=== PATIENT | male | born 1950 | race Caucasian/White ===

== ENCOUNTER 2020-09-06 10:11 | Outpatient (CLI) | payer MEDICARE, OTHER, SELFPAY ==
--- NOTE | 2020-09-06 10:00 | XRR_ITS ---
PROCEDURE INFORMATION: Exam: XR Abdomen Exam date and time: 09/06/2020 10:30 AM Age: 70 years old Clinical indication: Condition or disease; Kidney or ureter condition; Calculus (stone) in kidney; Prior surgery; Surgery type: Hernia x 2; Additional info: Renal stones of both kidneys TECHNIQUE: Imaging protocol: XR of the abdomen. Views: Frontal supine view of the abdomen. 1 View. COMPARISON: CR XR KUB [id number] 05/22/2019 10:19 AM FINDINGS: Gastrointestinal tract: Nonspecific small bowel dilatation and prominent stool. Intraperitoneal space: Multiple subcentimeter pelvic calcifications, which can be better characterized with CT, if clinically indicated. Incomplete visualization of the lateral and superior most aspects of the abdomen. Organs: Multiple punctate nonobstructing bilateral renal calculi. Bones/joints: Degenerative change. XR/XR KUB [id number] IMPRESSION: 1. Multiple punctate nonobstructing bilateral renal calculi. 2. Multiple subcentimeter pelvic calcifications, which can be better characterized with CT, if clinically indicated.
== END 2020-09-06 10:12 | disposition home or self-care (01) ==
LOC: RAD 10:16
PROVIDERS: PCP Family Medicine; Visit Provider Urology
DX: N20.0 Calculus of kidney (principal)
CPT/HCPCS: 74018; 81003; 87077; 87086; 87184

== ENCOUNTER → 2020-09-07 12:20 | Outpatient (BNVA) | payer MEDICARE, OTHER, SELFPAY | PROVIDERS: PCP Family Medicine; Visit Provider Urology | DX: Z20.822 Contact with and (suspected) exposure to COVID-19 (principal); N20.0 Calculus of kidney | CPT/HCPCS: 87635 ==

== ENCOUNTER 2020-09-12 11:51 | Day surgery (SDC) | payer MEDICARE, OTHER, SELFPAY ==
[2020-09-09 08:45] VITALS: BMI 33.9
--- NOTE | 2020-09-12 11:53 | XRR_ITS ---
PROCEDURE INFORMATION: Exam: XR Abdomen Exam date and time: 09/12/2020 12:13 PM Age: 70 years old Clinical indication: Screening exam; Other: Preop eswl bladder stones; Prior surgery; Surgery type: Hernia, kidney TECHNIQUE: Imaging protocol: XR of the abdomen. Views: Frontal supine view of the abdomen. 1 View. COMPARISON: CR XR KUB [id number] 09/06/2020 10:38 AM FINDINGS: Tubes, catheters and devices: Prior mesh placement Gastrointestinal tract: Bowel gas pattern is nonspecific. No mass effect upon the bowel loops. Distal rectal gas. Scattered loops of air filled small bowel none of which are dilated. Organs: Numerous small calcifications in the pelvis likely within the bladder given the history. Bones/joints: No acute process within the osseous structures of the spine or pelvis. Other findings: No appreciable calcifications; Numerous calcifications overlie the right and left kidneys largest on the left of approximately 4 mm on the right of approximately 3 mm. XR/XR KUB [id number] IMPRESSION: 1. Bowel gas pattern is nonspecific. 2. Numerous small calcifications in the pelvis likely within the bladder given the history. 3. Numerous calcifications overlie the right and left kidneys largest on the left of approximately 4 mm on the right of approximately 3 mm.
[2020-09-12 12:26] VITALS: BP 147/85; PULSE 61; RESP 18; TEMP 36.8; O2SAT 97
[2020-09-12] MEDS: sodium chloride 0.9% 1,000 ML 30 ML IV (12:51)
[2020-09-12] MEDS: levofloxacin-dextrose 5 % 500 MG/100 ML PREMIX 100 MG IV (13:09)
--- NOTE | 2020-09-12 13:22 | ANES.PREANE2 ---
Pre-Anesthetic Assessment Pre-Anesthetic Assessment: Height/Weight: Height 1.83 m Weight 113.398 kg Temp Pulse Resp BP Pulse Ox 98.2 F 61 18 147/85 97 09/12/20 12:26 09/12/20 12:26 09/12/20 12:26 09/12/20 12:26 09/12/20 12:26 Preop Diagnosis: cystolithiasis Proposed Procedure: Operation Date: 09/12/20 13:20 Proposed Procedures p Cystoscopy [id number] N20.0(Not Applicable) - Morteza Landis MD s ESWL(Not Applicable) - Morteza Landis MD Was Beta Craig taken within 24 hours: Yes Last intake: Intake Last Liquid Date 09/19/20 Last Liquid Time 06:00 Last Solid Date 09/11/20 Last Solid Time 21:00 Social: Social History: No alcohol and No tobacco Exam: Pre-Anes Outpt Exam: alert, oriented x 3, clear to auscultation bilaterally and regular rate & rhythm Airway: Submandibular: WNL Cervical ROM: Other (Limited) MP: 2 Dentition: Caps History/ROS: No significant complaints Pulmonary: Pulmonary: Sleep apnea CV/HEM: CV/HEM: HTN : : None reported Hepatic: Hepatic: None reported GI: GI: None reported Metabolic: Metabolic: Hyperlipidemia Musc/skel: Musc/skel: None reported Neuropsych: Comments: Essential Tremor Anesthetic Plan: ASA status: 3 Anesthesia: General Meds/Allergies Current Medications: Current Medications Generic Name Dose Route Start Last Admin Trade Name Freq PRN Reason Stop Dose Admin Sodium Chloride 1,000 mls @ 30 ml s/hr 09/12/20 12:30 09/12/20 12:51 Sodium Chloride 0.9% IV 30 mls/hr .Q24H JACY Administration PFSH Anesthesia PFSH: Medical History (Updated 09/07/20 @ 12:58 by Morteza Landis MD) Benign prostatic hyperplasia with lower urinary tract symptoms Bilateral renal stones Elevated prostate specific antigen [PSA] Frequency of urination Retention of urine, unspecified Surgical History H/O lithotripsy S/P hernia repair S/P tonsillectomy Family History Mother Dementia Father Cancer prostate Social History Smoking and tobacco status: never smoked Alcohol intake: never Marital status: Current occupational status: retired Data Anesthesia Cardiac Studies: No Data to Display
--- NOTE | 2020-09-12 15:12 | W.PM.OPSUD ---
Surgery/Procedure H&P Update DATE OF PROCEDURE: September 12, 2020 DATE H&P PERFORMED: 09/07/20 H&P UPDATE INFORMATION: I have reviewed H&P completed within last 30 days, I have examined patient prior to procedure, No changes to prior documentation and H&P is in [facility] on date indicated PREOP DIAGNOSIS: cystolithiasis PLANNED PROCEDURE: Operation Date: 09/12/20 13:20 Proposed Procedures p Cystoscopy [id number] N20.0(Not Applicable) - Morteza Landis MD s ESWL(Not Applicable) - Morteza Landis MD
--- NOTE | 2020-09-12 15:14 | PM.OP ---
Operative Report Date of procedure: September 12, 2020 Pre-op Diagnosis: cystolithiasis Post-op diagnosis: same Procedure Done: 1. Extracorporeal shockwave lithotripsy to multiple bladder stones 2. Cystoscopy with evacuation of bladder stone fragments Pathology: Bladder stone fragments Surgeon: Boby Bitumastic Applier: Isi Anesthesia: General Estimated blood loss: Minimal Urine output: Not measured Complications: None Condition: stable Disposition: PACU Brief History: Mr. Newby is a very pleasant 70-year-old white male with a complex history of bilateral urolithiasis with multiple procedures over the years. Recently he started passing stones in the been in his kidneys for years with actually very little symptoms into the bladder. He has a very large prostate with bladder obstructive symptoms and is on double dose TAMSULOSIN. The stones were identified on KUB as either in the distal right ureter or in the bladder and a cystoscopy in clinic confirmed stones were actually in the bladder. They were too large to pull out intact in the clinic for that reason he is admitted today for treatment. We reviewed ESWL versus cystolitholapaxy versus laser lithotripsy and elected ESWL with evacuation via cystoscopy. Preoperatively we also discussed the potential postop use of a catheter due to his huge prostate and bladder outlet obstructive symptoms with likelihood of postop retention. We left that decision to be made intraoperatively given the findings. Procedure: After routine preoperative evaluation examination and obtaining of informed consent he was taken to the operating suite on 09/12/2020 where general anesthesia was administered without difficulty after appropriate timeout was performed, SCDs confirmed to be functioning, preoperative antibiotics administered, beta-charley protocol confirmed. Positioned on the Dornier unit such that the stones in the bladder were located at the focal point with the shock head positioned anteriorly. The stones were easily identified. Shockwave therapy was initiated intensity of 1 and advanced an intensity of 4. Rate was begun at 70 and advanced to 90 after significant change in all the stones was noted. Total number of shocks administered: Results: He was then placed in dorsolithotomy position and the 23 Taiwanese cystoscope with 30 degree lens was introduced into urethra meatus and advanced into the bladder under videoscopy. An Ellik evacuator was utilized to remove the fragments that remained from the bladder. None of the fragments were large and were easily washed free from the bladder with the Ellik evacuator. Final inspection with both 70 and 30 degree lenses showed no residual fragments. It was decided to leave the catheter in place to avoid postoperative urinary retention. An 18 Taiwanese Chapa catheter was left indwelling with anticipation of removal at home in a couple days. He tolerated the procedure well without complications and was awakened in the operating room and returned to the recovery room in stable condition. PLANS: 1. Anticipate discharge from outpatient surgery 2. Remove Chapa catheter at home in a couple days 3. Follow-up in about 3 months with a KUB. Call sooner for any concerns or questions.
[2020-09-12 16:29] VITALS: BP 155/88; PULSE 84; RESP 18; TEMP 36.2; O2SAT 96
[2020-09-12 16:35] VITALS: BP 160/87; PULSE 82; RESP 13; O2SAT 97
[2020-09-12 16:40] VITALS: BP 157/89; PULSE 82; RESP 18; TEMP 36.6; O2SAT 97
[2020-09-12 16:50] VITALS: BP 156/94; PULSE 75; RESP 18; TEMP 36.6; O2SAT 96
--- NOTE | 2020-09-12 16:57 | ANE.PACU2 ---
Inpatient post-anesthesia follow up: Airway intact: Yes Vital signs: Temperature 97.8 F Pulse Rate 75 Respiratory Rate 18 Blood Pressure 156/94 Pulse Oximetry 96 Oxygen Delivery Me thod Room Air Oxygen Flow Rate Fraction of Inspir ed Oxygen Hydration adequate: Yes Nausea and vomiting: No Pain level: 2 Mental status: Baseline
[2020-09-12 17:13] VITALS: BP 146/92; PULSE 75; RESP 18; TEMP 36.6; O2SAT 96
== END 2020-09-12 17:34 | disposition home or self-care (01) ==
PROVIDERS: PCP Family Medicine; Visit Provider Urology
PROC: 0TJB8ZZ Inspection of Bladder, Via Natural or Artificial Opening Endoscopic (ICD-10-PCS; CPT 52000; principal; 2020-09-12 13:15)
PROC: (CPT 50590; 2020-09-12 13:15)
DX: N20.1 Calculus of ureter (principal); G47.30 Sleep apnea, unspecified; I10 Essential (primary) hypertension; E78.5 Hyperlipidemia, unspecified; N40.1 Benign prostatic hyperplasia with lower urinary tract symptoms; Z87.440 Personal history of urinary (tract) infections; R82.71 Bacteriuria; R33.9 Retention of urine, unspecified
CPT/HCPCS: 50590; 74018; 82365; 88300; 96365; J1956; J2704; J3010; J3490; J7030

== ENCOUNTER 2020-12-14 09:50 | Outpatient (CLI) | payer MEDICARE, OTHER, SELFPAY ==
--- NOTE | 2020-12-14 09:30 | XR_ITS ---
WS: [id number] KUB, AP view, 12/14/2020 Clinical Data: N21.0 - Calculus in bladder Comparison: KUB, 09/12/2020. Findings: There are numerous small calcifications overlying both kidneys. There are fewer calcifications in the pelvis. There are phleboliths in the true pelvis. The bowel gas pattern is unremarkable. 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 There are surgica l clips bilaterally. XR/XR KUB [id number] Impression: 1. Bilateral renal calculi. 2. Diminished number of calcifications in the pelvis.
== END 2020-12-14 09:51 | disposition home or self-care (01) ==
LOC: RAD 09:55
PROVIDERS: PCP Family Medicine; Visit Provider Urology
DX: N20.0 Calculus of kidney (principal); N21.0 Calculus in bladder; R82.71 Bacteriuria
CPT/HCPCS: 74018; 81003; 87077; 87086; 87184